=== PATIENT | male | born 1950 | race Caucasian/White ===

== ENCOUNTER 2016-10-05 13:43 | Emergency (ER) | payer SELFPAY ==
[~2016-10-05] VITALS: Ht 175.3 cm; Wt 175.1 kg
[2016-10-05 13:52] VITALS: BP 121/94
--- NOTE | 2016-10-05 14:44 | RAD ---
Three-view right shoulder radiographs 10/05/2016 Clinical history: Right shoulder pain post fall. Portable AP internal and external rotation and transscapular digital radiographs of the right shoulder were obtained. No fracture or dislocation of the right shoulder is seen. Moderate degenerative changes are seen involving the right glenohumeral joint and right AC joint. Impression: No fracture or dislocation of the right shoulder is seen.
--- NOTE | 2016-10-05 14:45 | RAD ---
Portable chest radiograph 10/05/2016 Clinical history: Chest pain post fall. Two AP portable supine digital radiographs of the chest were obtained. No previous studies are available for comparison. The cardiac silhouette is borderline enlarged. The thoracic aorta is tortuous. Atherosclerotic calcification of the thoracic aorta is seen. No acute pulmonary infiltrate is noted. No pneumothorax or pleural effusion is seen. Degenerative changes are seen involving the thoracic spine and both shoulders. The osseous structures are grossly intact. Impression: No acute abnormality is seen.
[2016-10-05] MEDS ORDERED: IBUP400T18 PO (14:51)
--- NOTE | 2016-10-05 14:52 | PHYS DOC ---
Past History Past Medical History: Hypertension Past Surgical History: Hip Replacement Alcohol Use: None Drug Use: None Adult General Chief Complaint Chief Complaint: MECHANICAL FALL HPI HPI 66-year-old gentleman presenting to the emergency department today after sustaining a mechanical fall from less than 2 feet from his bed. He reports falling on the shoulder on the right side and has pain in the shoulder that is mild nonradiating intermittent and without alleviating factors. She also has lumbar back pain. He denies numbness weakness or tingling. He denies hitting his head or loss of consciousness. He denies neck pain. Review of systems is negative for chest pain shortness of breath abdominal pain. He denies any pain in his hips or his legs. All other review of systems is negative unless otherwise noted in history of present illness. ED course: 66-year-old male presenting to the emergency department today after falling approximately 1-1/2 feet from his bed. He comes in by EMS. Shoulder x- ray unremarkable. On examination of the patient during secondary survey, the patient has no abdominal pain. No tenderness to palpation. Lungs are clear bilaterally. Nontender midline cervical spine. No step-offs abrasions or lacerations to lower or thoracic back. The patient does not have any step-offs of the cervical spine. Nontender midline. Mild tenderness along the paraspinal musculature bilaterally. Range of motion of the patient's bilateral hips were unremarkable. No pain on passive range of motion. Otherwise remainder of his extremities are unremarkable. No evidence of traumatic head injury. No exam unremarkable. The patient was able to ambulate in the emergency department without any difficulty and was subsequently discharged home. The patient was then discharged home in stable condition to follow up with their primary care physician over the next 2-3 days. They were to return if their symptoms worsened or if they were concerned for any reason. [id number] discharge instructions and return precautions were given. Patient's questions were answered to their satisfaction. Patient is comfortable plan. Review of Systems Review of Systems see above Allergies Allergies Allergies Coded Allergies Type Severity Reaction Last Updated Verified No Known Drug Allergies 10/05/16 No Physical Exam Physical Exam Constitutional: Well developed, well nourished, no acute distress, non-toxic appearance. [] HENT: Normocephalic, atraumatic, bilateral external ears normal, oropharynx moist, no oral exudates, nose normal. [] Eyes: PERRLA, EOMI, conjunctiva normal, no discharge. [] Neck: Normal range of motion, no tenderness, supple, no stridor. [] Cardiovascular:Heart rate regular rhythm, no murmur [] Lungs & Thorax: Bilateral breath sounds clear to auscultation [] Abdomen: Bowel sounds normal, soft, no tenderness, no masses, no pulsatile masses. [] Skin: Warm, dry, no erythema, no rash. [] Back: No tenderness, no CVA tenderness. [] Extremities: No tenderness, no cyanosis, no clubbing, ROM intact, no edema. [] Neurologic: Alert and oriented X 3, normal motor function, normal sensory function, no focal deficits noted. [] Psychologic: Affect normal, judgement normal, mood normal. [] Current Patient Data Vital Signs Vital Signs Date Time Temp Pulse Resp B/P (MAP) Pulse Ox O2 Delivery O2 Flow Rate FiO2 10/05/16 13:52 98.6 77 22 94 EKG EKG [] Radiology/Procedures Radiology/Procedures [] Course & Med Decision Making Course & Med Decision Making Pertinent Labs and Imaging studies reviewed. (See chart for details) [] Dragon Disclaimer Dragon Disclaimer This chart was dictated in whole or in part using Voice Recognition software in a busy, high-work load, and often noisy Emergency Department environment. It may contain unintended and wholly unrecognized errors or omissions. Departure Departure: Impression: Primary Impression: Right shoulder pain Additional Impression: Musculoskeletal back pain Disposition: HOME, SELF-CARE Condition: STABLE Referrals: PCP,NO (PCP) JERSON GARCIA MD Patient Instructions: Shoulder Pain, [id number] Additional Instructions: Thank you for allowing us to participate in your care today. Followup with your primary care physician in 3 days if your symptoms do not improve. Call your Primary Doctor tomorrow and inform them of your visit today. If you do not have a primary care provider you can ask for a list of our primary care providers. Return to the emergency department you have any new or concerning findings. This should be evaluated by the primary care physician and any necessary consulting services for continued management within a few days after discharge. Return to emergency room if you have any new or concerning symptoms including but not limited to fever, chills, nausea, vomiting, intractable pain, any new rashes, chest pain, shortness of air, uncontrolled bleeding, difficulty breathing, and/or vision loss. Scripts Ibuprofen (IBUPROFEN) 400 Mg Tablet 1 TAB PO PRN Q8HRS Y for PAIN, #20 TAB Prov: YENNIFER CANALES MD 10/05/16 Problem Qualifiers YENNIFER CANALES MD Oct 05, 2016 14:52
== END 2016-10-05 15:15 | disposition home or self-care (01) ==
LOC: ER 13:43
DX: M25.511 Pain in right shoulder (principal); M54.5 Low back pain; I10 Essential (primary) hypertension; W06.XXXA Fall from bed, initial encounter; Y93.89 Activity, other specified; Y99.8 Other external cause status; Y92.89 Other specified places as the place of occurrence of the external cause
CPT/HCPCS: 71010; 73030; 99284